=== PATIENT | female | born 1960 ===

== ENCOUNTER 2018-10-22 05:57 | Day surgery (SDC) | payer OTHER ==
[~2018-10-22 05:57] MED LIST: ATORVASTATIN CA10 MG PO; ENALAPRIL MALEAT5 MG PO; GABAPENTIN100 MG PO; METFORMIN HCL500 M1
== END 2018-10-22 13:05 | disposition home or self-care (01) ==
LOC: CIR.AMB 05:57
DX: M75.42 Impingement syndrome of left shoulder (principal); M75.32 Calcific tendinitis of left shoulder; M13.812 Other specified arthritis, left shoulder